=== PATIENT | male | born 1960 | race Caucasian/White ===

== ENCOUNTER 2016-12-12 07:29 | Day surgery (SDC) | payer SELFPAY ==
[2016-12-12] MEDS ORDERED: Propofol 200 MG/20 ML SDV ONE (08:01)
[2016-12-12] MEDS ORDERED: fentaNYL 100 MCG/2 ML SDV ONE (08:01)
[2016-12-12] MEDS ORDERED: Midazolam 1 MG/ML 2 ML SDV ONE (08:02)
[2016-12-12] MEDS ORDERED: Lactated Ringers 1,000 ML IV SCH (08:15)
[2016-12-12 11:59] VITALS: BP 136/74
--- NOTE | 2016-12-15 07:53 | OR ---
DATE OF PROCEDURE: 12/12/2016 PREOPERATIVE DIAGNOSIS: History of colon cancer. POSTOPERATIVE DIAGNOSES: 1. Unremarkable colonoscopy. 2. History of colon cancer. PROCEDURE: Colonoscopy to the cecum. SURGEON: Luis Vu MD. ANESTHESIA: IV anesthesia with monitored anesthesia care. INDICATION: This 56-year-old white male, about year and half ago, underwent a low anterior resection for colon cancer. He has had one followup colonoscopy a few months after his resection as we were unable to go above the tumor with his initial colonoscopy. It is now a year since his last colonoscopic exam. I counseled him for the procedure including risks and alternatives, and he gave his informed consent to proceed. DESCRIPTION OF PROCEDURE: The patient was placed in the left lateral decubitus position. IV anesthesia was administered by the Anesthesia Service. Time-out was held. A rectal exam was performed, which was unremarkable. The flexible video Olympus colonoscope was introduced through his anus, up his rectum, and out his colon all the way to the cecum. Once the cecum was reached, the scope was slowly withdrawn, examining the mucosa throughout. No mucosal abnormalities were noted. The anastomosis looked well with no evidence of local recurrence. The scope was retroflexed in the rectum with the distal rectum appearing unremarkable. The scope was straightened and removed. He tolerated the procedure well. Luis Vu MD /[id number] MTDD
== END 2016-12-12 11:15 | disposition home or self-care (01) ==
LOC: JP.SDS 07:29
PROVIDERS: ATTEND Surgery
DX: Z12.11 Encounter for screening for malignant neoplasm of colon (principal); J45.909 Unspecified asthma, uncomplicated; Z88.0 Allergy status to penicillin
CPT/HCPCS: 45378; J2250; J2704; J3010; J7120

== ENCOUNTER 2017-03-25 21:27 | Emergency (ER) | payer SELFPAY ==
[2017-03-25 21:40] VITALS: BP 154/82
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
[2017-03-25] MEDS ORDERED: Alum Hydrox/Mag Hydrox/Simeth 15 ML, Lidocaine 2% 15 ML PO ONE ×2 (22:58)
[2017-03-25] MEDS ORDERED: Acetaminophen 500 MG Tab PO ONE (23:14)
[2017-03-25] MEDS ORDERED: Famotidine 20 MG Tab PO ONE (23:14)
--- NOTE | 2017-03-26 11:02 | CR ---
Abdomen 1V Upright HISTORY: Central pain. COMPARISON: CT scan 11/21/2016 FINDINGS: The bowel gas pattern is nonobstructive. No suspicious calcifications. Bony structures appe ar unremarkable. Impression: Negative abdomen.
== END 2017-03-25 23:35 | disposition home or self-care (01) ==
LOC: JP.ED 21:27
DX: K29.00 Acute gastritis without bleeding (principal); J45.909 Unspecified asthma, uncomplicated; Z88.0 Allergy status to penicillin
CPT/HCPCS: 36415; 74018; 80053; 81001; 83690; 85027; 86140; 99284; A9270; 99283

== ENCOUNTER 2017-03-28 09:28 | Observation (INO) | payer SELFPAY ==
[2017-03-28] MEDS ORDERED: Sodium Chloride 0.9% 1,000 ML IV STA (10:01)
[2017-03-28] MEDS ORDERED: HYDROmorphone 1 MG/ML Syringe IVPUSH ONE ×2 (10:03→11:24)
[2017-03-28] MEDS ORDERED: Ondansetron 4 MG/2 ML SDV IVPUSH ONE (10:03)
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
[2017-03-28] MEDS: Sodium Chloride 0.9% 10 ML Syringe FLUSH PRN ×2 (10:18→10:49)
[2017-03-28] MEDS ORDERED: Iopamidol 612 MG/ML 150 ML Bottle IV PRN (10:35)
[2017-03-28] MEDS ORDERED: Sodium Chloride 0.9% 10 ML Syringe FLUSH ONE (10:35)
[2017-03-28] MEDS ORDERED: Ondansetron 4 MG/2 ML SDV IV PRN (13:06)
[2017-03-28] MEDS ORDERED: HYDROmorphone 1 MG/ML Syringe IVPUSH PRN (13:11)
[2017-03-28] MEDS ORDERED: Albuterol 0.083% 2.5 MG/3 ML Neb Soln NEB PRN (13:12)
[2017-03-28] MEDS ORDERED: Albuterol 8 GM Inhaler INH PRN (13:12)
[2017-03-28] MEDS: Lactated Ringers 1,000 ML IV SCH ×2 (14:35→23:38)
[2017-03-28] MEDS: Levofloxacin/Dextrose 5%-Water 500 MG in Premix Bag 1 BAG IV SCH (14:45)
[2017-03-28] MEDS: Aztreonam/Dextrose-Water 1 GM in Premix Bag 1 BAG IV SCH ×2 (16:28→23:38)
[2017-03-28] MEDS ORDERED: HYDROmorphone/Normal Saline 15 MG/30 ML PCA IV SCH (18:00)
[2017-03-28] MEDS: Calcium Carbonate 500 MG Tab.Chew PO PRN ×2 (20:05→23:46)
[2017-03-28] MEDS: Formoterol/Mometasone 200-5 MCG 8.8 GM Inhaler IH SCH (20:06)
[2017-03-29] MEDS ORDERED: Bupivacaine 0.5%/EPINEPHrine 1:200,000 50 ML MDV ONE (06:25)
[2017-03-29] MEDS ORDERED: Neostigmine Methylsulfate 1 MG/ML 5 ML Syringe ONE (07:06)
[2017-03-29] MEDS ORDERED: Propofol 200 MG/20 ML SDV ONE (07:06)
[2017-03-29] MEDS: Aztreonam/Dextrose-Water 1 GM in Premix Bag 1 BAG IV SCH ×3 (07:06→22:59)
[2017-03-29] MEDS ORDERED: Dexamethasone 4 MG/ML SDV ONE (07:06)
[2017-03-29] MEDS ORDERED: Succinylcholine 200 MG/10 ML MDV ONE (07:06)
[2017-03-29] MEDS ORDERED: Rocuronium 50 MG/5 ML Vial ONE (07:06)
[2017-03-29] MEDS ORDERED: Glycopyrrolate 0.2 MG/ML 5 ML MDV ONE (07:06)
[2017-03-29] MEDS ORDERED: Ondansetron 4 MG/2 ML SDV ONE (07:06)
[2017-03-29] MEDS ORDERED: Lactated Ringers 1,000 ML ONE (07:21)
[2017-03-29] MEDS: Formoterol/Mometasone 200-5 MCG 8.8 GM Inhaler IH SCH (07:37)
[2017-03-29] MEDS ORDERED: hydrOXYzine HCl 100 MG/2 ML SDV IM ONE (08:54)
[2017-03-29] MEDS ORDERED: Famotidine 20 MG Tab PO SCH (09:00)
[2017-03-29] MEDS ORDERED: Multivitamins with Iron/Calcium/Folic Acid/Minerals Tab PO SCH (09:00)
[2017-03-29] MEDS ORDERED: FAMOTIDINE 40 MG PO SCH (09:00)
[2017-03-29] MEDS ORDERED: Albuterol/Ipratropium 3.0-0.5 MG/3 ML Neb Soln INH PRN (10:30)
[2017-03-29] MEDS ORDERED: Dextrose 5%-Lactated Ringers 1,000 ML IV SCH (10:30)
[2017-03-29] MEDS ORDERED: Pantoprazole 40 MG Vial IV SCH (11:00)
[2017-03-29] MEDS: Albuterol/Ipratropium 3.0-0.5 MG/3 ML Neb Soln INH SCH ×3 (13:26→22:58)
--- NOTE | 2017-03-29 14:15 | OR ---
DATE OF PROCEDURE: 03/29/2017 PREOPERATIVE DIAGNOSIS: Acute cholecystitis with pericholecystic fluid collection. POSTOPERATIVE DIAGNOSES: 1. Severe acute cholecystitis with pericholecystic abscess. 2. Incisional hernia. OPERATIVE PROCEDURES: Diagnostic laparoscopy with: 1. Cholecystectomy (35625). 2. Drainage of pericholecystic abscess (30748). 3. Repair of incisional hernia (99615). ANESTHESIA: General. INDICATIONS FOR PROCEDURE: Please see consultation dictated yesterday. DETAILS OF PROCEDURE: The patient was taken to the operating room and placed in a supine position. After general endotracheal anesthesia was induced, the abdomen was prepped and draped. An epigastric incision was made and peritoneal cavity entered under direct vision with an Optiview trocar inflated to 15 mmHg pressure with CO2. Laparoscope was reinserted. No underlying trocar insertion site injuries were seen. As one looked down toward the umbilicus, the patient was noted to have 2 incisional hernias, one was fairly broad, one in the central part of his lower midline incision and then a smaller one at the upper aspect of the lower midline incision, more or less in the periumbilical area. A decision was made to repair the latter one, the larger more central one would at some point need to be repaired with more of a formal mesh-type technique, which would be inappropriate in the setting today. A transverse subumbilical incision was made and the trocar was then placed through the hernia to facilitate laparoscopic closure at the end of the procedure. As expected, the patient was noted to have a severe acute cholecystitis with very marked edema, fresh adhesions between the omentum and gallbladder, and a faintly lombardo fluid collection in the posterior gallbladder consistent with a pericholecystic abscess. There was marked peritonitis in that general vicinity around the gallbladder and the fluid collection. This fluid collection was evacuated and culture sent. At that point, dissection continued down around the gallbladder neck. After taking down the loose adhesions, a tedious dissection eventually led to identification of the cystic duct and cystic artery. Once these were all identified, both structures were clipped 3 times proximally, one distally, and the gallbladder dissected off the gallbladder bed using a Harmonic scalpel. There appeared to be a possible segment [address] up on the gallbladder neck where there was a little bit of firmness in terms of the thickened structure there and this was clipped as well in the event that it might be a segment 8 bile duct. The gallbladder was then delivered from the field through the epigastric site that contained multiple tiny black stones. The area of dissection was inspected. No bleeding or bile leaks were seen at this point. Robert-Johnson drain was taken through the right lateral trocar site and positioned into the area of the gallbladder bed along with the abscess location and then also draped down posterior to the right lobe of the liver to collect any fluid that might be draining into that region. The camera was brought up to the epigastric port once again, and using the laparoscopic suture passers, several #1 Vicryl sutures were incorporating the trocar site and the underlying incisional hernia. This set up the closure with a transverse orientation. Once these were in place, the remaining trocars were removed, peritoneal cavity deflated. The fascia at the epigastric site was closed with 0 Vicryl stitch and the hernia repair stitch was then tied as well. The skin at the umbilical site was then closed with some 4-0 Vicryl skin stitch. The epigastric site where the gallbladder had been brought through was packed open with iodoform gauze and the dressing applied. The patient was taken to the recovery room in satisfactory condition. There were no evident complications. Kiko Logan MD /[id number]
[2017-03-29] MEDS: Levofloxacin/Dextrose 5%-Water 500 MG in Premix Bag 1 BAG IV SCH (14:55)
[2017-03-29] MEDS: Acetaminophen/HYDROcodone 325-5 MG Tab PO PRN ×2 (18:33→22:54)
[2017-03-29] MEDS ORDERED: SYMBICORT INH SCH (21:00)
[2017-03-30] MEDS: Acetaminophen/HYDROcodone 325-5 MG Tab PO PRN ×2 (04:34→08:41)
[2017-03-30 07:15] VITALS: BP 118/62
[2017-03-30] MEDS ORDERED: Ciprofloxacin 500 MG Tab PO SCH (09:00)
--- NOTE | 2017-03-30 13:16 | CONS ---
DATE OF SERVICE: 03/28/2017 REFERRING PHYSICIAN: Kiko Logan MD CONSULTING PHYSICIAN: Kiko Logan MD HISTORY: This is a 56-year-old admitted with onset of right abdominal pain. This has been going on at least for a few days, but became quite severe, prompting him to come to the emergency room. Workup included an ultrasound, which showed markedly thickened gallbladder consistent with an acute cholecystitis, along with a significant amount of pericholecystic fluid collection. PAST SURGICAL HISTORY: Includes left inguinal hernia repair, along with a sigmoid colon resection through a lower midline incision, the latter being apparently diverticular disease. Otherwise, past medical history, social history, medications, and allergies are per the ER note. PHYSICAL EXAMINATION: GENERAL: On examination, the patient presently afebrile and fairly alert. LUNGS: Clear. HEART: Regular rhythm. Normal S1 and S2. ABDOMEN: Shows fullness and marked tenderness in the right upper quadrant. PELVIC AND RECTAL EXAMS: Deferred. IMPRESSION: Acute cholecystitis with probable pericholecystic inflammatory fluid collection. PLAN: The plan will be to proceed with admission with IV antibiotics. He is allergic to penicillin, so we will go with Levaquin and Azactam and plan to proceed with a laparoscopic cholecystectomy tomorrow. He is aware of the possible need for open repair. Also, potential complications including bleeding, infection, injury to underlying viscera such as common bile duct, possibility of stones migrating in the common bile duct requiring additional procedures for correction were all gone over, along with the remote possibility of cardiopulmonary, septic, or hemorrhagic complications leading to , and the patient wishes to proceed. Surgery will be undertaken tomorrow morning. Kiko Logan MD /[id number]
--- NOTE | 2017-03-31 03:25 | DISCH ---
ADMISSION DIAGNOSES: Cholecystitis, gastritis, atrial fibrillation, arrhythmia, asthma. DISCHARGE DIAGNOSES: 1. Diagnostic laparoscopy with cholecystectomy, drainage of pericholecystic abscess and repair of incisional hernia for severe acute cholecystitis with pericholecystic abscess and incisional hernia. 2. Culture of pericholecystic fluid collection, gram-positive cocci, enterococcus. HISTORY: Patricio Panchal is a 56-year-old male who presented to the ER with abdominal pain. After preoperative evaluation, discussion of possible risks and possible complications, he wished to proceed with surgical procedure. HOSPITAL COURSE: Patricio had his surgery on 03/29/2017. He had no operative complications. On postop day #1, his packing was removed from his upper trocar site. His SAM drain was removed after having 250 mL of a serosanguineous drainage. Activity was good. Vital signs were stable. He is ready to be discharged to home. PHYSICAL EXAMINATION: GENERAL: Patricio Panchal is a 56-year-old male. VITAL SIGNS: Height is 5 feet 10 inches, weight is 199 pounds, BMI is 28.6. TPR is 98, 52, 16, blood pressure 118/62. HEENT: Negative. NECK: Supple. HEART: Regular rate and rhythm. LUNGS: Clear. ABDOMEN: Open upper trocar site was dressed with 4x4s. Sutures in place. Abdominal binder is on. EXTREMITIES: Without peripheral edema. DISPOSITION: Discharged to home. CONDITION: Stable and improving. FOLLOWUP APPOINTMENTS: With Kiko Logan MD on 04/08/2017 at 8 a.m. HOME MEDICATIONS: 1. Cipro 500 mg p.o. b.i.d. #10 for 5 days. 2. [place] 5/325 mg 1 to 2 tabs every 4 hours p.r.n. pain, #30. 3. Milk of magnesia 30 mL p.o. daily, 2 were sent home with patient. 4. He is to resume his home medications. DIET: Usual diet as tolerated. Drink 8 to 10 glasses of water a day. ACTIVITY: No lifting greater than 10 pounds for 2 weeks. Walk inside your house six times daily. Driving, do not drive for 1 week and while on pain medication. DISCHARGE INSTRUCTIONS: Shower/bathing, may shower. Keep operative site clean and dry. Change dressing daily over open trocar site until it has stopped draining. Wear abdominal binders for 2 weeks and then as tolerated. Notify provider if any fever, increased pain, nausea, or vomiting. Special instruction; use incentive spirometer 10 times every hour while awake for one week.
== END 2017-03-30 11:27 | disposition home or self-care (01) ==
LOC: JP.ED 09:28 → JP.MS 13:06
PROVIDERS: ADMIT Hospitalist; ATTEND Surgery
DX: K80.12 Calculus of gallbladder with acute and chronic cholecystitis without obstruction (principal); K43.2 Incisional hernia without obstruction or gangrene; J45.909 Unspecified asthma, uncomplicated; Z88.0 Allergy status to penicillin; Z79.899 Other long term (current) drug therapy
CPT/HCPCS: 36415; 47562; 49020; 49654; 74177; 80053; 81001; 82247; 83605; 83690; 84075; 85025; 85027; 87070; 87075; 87205; 94762; 96361; 96365; 96367; 96375; 96376; 99285; A9270; C9113; G0378; J0330; J1100; J1170; J1956; J2405; J2704; J2710; J3010; J3410; J7030; J7040; J7042; J7050; J7120; 88304; 96374; 99284; J3490